=== PATIENT | female | born 1955 | race Caucasian/White ===

== ENCOUNTER 2018-05-09 07:23 | Outpatient (CLI) | payer OTHER ==
--- NOTE | 2018-05-09 10:38 | Cat Scan Report ---
CT scan of pelvis without IV contrast: History: Pelvic and perineal pain. Findings: Partially distended bladder. No free intraperitoneal fluid or air. No evidence of adenopathy. No mass at adnexa. Stool in rectosigmoid. Perirectal adipose tissue appears unremarkable. Impression: Essentially negative CT scan of pelvis.
== END 2018-05-09 07:24 | disposition home or self-care (01) ==
LOC: CT 07:23
PROVIDERS: ATTEND Obstetrics & Gynecology
DX: R10.2 Pelvic and perineal pain (principal); Z88.6 Allergy status to analgesic agent; Z91.040 Latex allergy status; Z91.048 Other nonmedicinal substance allergy status
CPT/HCPCS: 72192